=== PATIENT | male | born 1970 | race Two or more races ===

== ENCOUNTER → 2018-12-30 | Emergency (ER) | payer OTHER ==
[~2018-12-30] VITALS: Ht 177.8 cm; Wt 117.9 kg
[~2018-12-30] MED LIST: KETO10TA2 PO; LEVOXYL200 MCG; ORPHENADRINE C100 MG PO
== END | disposition home or self-care (01) ==
LOC: ER 02:57
DX: M25.511 Pain in right shoulder (principal)